=== PATIENT | male | born 1955 | race Caucasian/White ===

== ENCOUNTER 2024-06-28 09:52 | Outpatient (CLI) | payer MEDICARE, SELFPAY ==
--- NOTE | ~2024-06-28 | XR_ITS ---
[id number] Ordering provider: Brian Graham, History: . Neck pain . Comparison: None. FINDINGS: VERTEBRAL BODIES: Minimal retrolisthesis at the level of C4-C5. Otherwise, Normal height and alignmen t. No visible fracture or subluxation. The dens is intact. DISK SPACES: Narrowing of the disc C4-C5, C5-C6 and C6-C7. Multilevel facet joint disease. Multilevel uncovertebral joint osteoarthritic changes. PARASPINOUS SOFT TISSUES: No prevertebral soft tissue swelling. IMPRESSION: No acute osseous abnormality cervical spine. Minimal retrolisthesis at the level of C4-C5. Multilevel degenerative disc disease. Reviewed, dictated and finalized at location A. IMPRESSION: No acute osseous abnormality cervical spine. Minimal retrolisthesis at the leve l of C4-C5. Multilevel degenerative disc disease.
== END 2024-06-28 09:53 | disposition home or self-care (01) ==
LOC: MICIMG 09:57
PROVIDERS: PCP Internal Medicine; Visit Provider Internal Medicine
DX: M50.30 Other cervical disc degeneration, unspecified cervical region (principal)
CPT/HCPCS: 72040